=== PATIENT | female | born 1965 | race African-American/Black ===

== ENCOUNTER 2018-01-14 13:36 | Emergency (ER) | payer MEDICAID ==
[~2018-01-14] VITALS: Ht 154.9 cm; Wt 54.5 kg
[2018-01-14] MEDS ORDERED: KETOROLAC 60MG/2ML VIAL IM ONE (15:00)
[2018-01-14 16:36] VITALS: BP 112/76
== END 2018-01-14 16:36 | disposition home or self-care (01) ==
LOC: ER 13:36
DX: M79.641 Pain in right hand (principal); M79.631 Pain in right forearm; F17.200 Nicotine dependence, unspecified, uncomplicated; F12.10 Cannabis abuse, uncomplicated; Z98.890 Other specified postprocedural states
CPT/HCPCS: 29125; 73090; 73130; 96372; 99283; J1885